=== PATIENT | female | born 1985 | race Caucasian/White ===

== ENCOUNTER → 2017-06-04 | Outpatient (CLI) | payer OTHER | LOC: RAD 10:46 | PROVIDERS: ATTEND Nurse Practitioner Family | DX: Z02.9 Encounter for administrative examinations, unspecified (principal) ==

== ENCOUNTER → 2017-07-22 | Outpatient (CLI) | payer OTHER ==
[~2017-07-22] MED LIST: Birth Control Pill PO; FENTANYL PF 250 MCG/5ML ONE; MEPERIDINE/PF 50 MG/ML ONE; MIDAZOLAM 1 MG/ML, 2ML ONE; ONDANSETRON 2MG/ML, 2ML ONE; VITA1TAB19 PO
== END | disposition home or self-care (01) ==
LOC: STAR 08:11
PROVIDERS: ATTEND Colon & Rectal Surgery
DX: Z02.9 Encounter for administrative examinations, unspecified (principal)

== ENCOUNTER 2017-07-29 07:49 | Day surgery (SDC) | payer OTHER ==
[~2017-07-29] VITALS: Ht 165.1 cm; Wt 69.8 kg
[~2017-07-29 07:49] MED LIST changes: -FENTANYL PF 250 MCG/5ML ONE; -MEPERIDINE/PF 50 MG/ML ONE; -MIDAZOLAM 1 MG/ML, 2ML ONE; -ONDANSETRON 2MG/ML, 2ML ONE
[2017-07-29 08:32] LABS: HCG UR SG 1.028 (1.003-1.030)
[2017-07-29 08:35] VITALS: BP 109/71
[2017-07-29] MEDS ORDERED: LACTATED RINGERS 1,000 ML IV SCH (09:00)
[2017-07-29] MEDS ORDERED: SCOPOLAMINE PATCH, 1.5MG PATCH.TD72 TD ONE (09:00)
[2017-07-29] MEDS ORDERED: ACETAMINOPHEN 500 MG TABLET PO ONE (09:00)
[2017-07-29] MEDS ORDERED: OxyconTIN ER 10 MG TAB.ER PO ONE (09:00)
[2017-07-29] MEDS ORDERED: GABAPENTIN 300 MG CAPSULE PO ONE (09:00)
[2017-07-29] MEDS ORDERED: BUPIVACAINE 0.25% ONE (09:25)
[2017-07-29] MEDS ORDERED: EPINEPHRINE 1 MG/ML, 1ML ONE (09:25)
[2017-07-29] MEDS ORDERED: ONDANSETRON 2MG/ML, 2ML ONE (10:00)
[2017-07-29] MEDS ORDERED: DEXAMETHASONE 4 MG/ML, 1ML ONE (10:00)
[2017-07-29] MEDS ORDERED: SUCCINYLCHOLINE 20 MG/ML, 10ML ONE (10:00)
[2017-07-29] MEDS ORDERED: GLYCOPYRROLATE 0.2MG/1ML, 5ML ONE (10:00)
[2017-07-29] MEDS ORDERED: NEOSTIGMINE 1 MG/ML, 10ML ONE (10:00)
[2017-07-29] MEDS ORDERED: PROPOFOL 10 MG/ML, 20ML ONE (10:00)
[2017-07-29] MEDS ORDERED: CEFOTETAN 1 GM ONE (10:00)
[2017-07-29] MEDS ORDERED: ROCURONIUM 10 MG/ML,10ML ONE (10:00)
[2017-07-29] MEDS ORDERED: BUPIVACAINE/PF-EPI 0.25% 1:200K IM ONE (10:25)
[2017-07-29] MEDS ORDERED: OXYcodone 5 MG/5 ML ORAL.SOL UDC PO PRN (11:00)
[2017-07-29] MEDS ORDERED: ALBUTEROL SULFATE 2.5 MG/3 ML NPPB PRN (11:00)
[2017-07-29] MEDS ORDERED: KETOROLAC 30 MG/1 ML IV PRN (11:00)
[2017-07-29] MEDS ORDERED: MEPERIDINE/PF 25MG/0.5ML IVPush PRN (11:00)
[2017-07-29] MEDS ORDERED: hydrALAzine 20 MG/ML, 1ML IV PRN (11:00)
[2017-07-29] MEDS ORDERED: ONDANSETRON 2MG/ML, 2ML IVPush PRN (11:00)
[2017-07-29] MEDS ORDERED: PLEASE ENTER ALLERGIES MC SCH (11:00)
[2017-07-29] MEDS ORDERED: METOCLOPRAMIDE 5 MG/ML, 2ML IV PRN (11:00)
[2017-07-29] MEDS ORDERED: PROMETHAZINE 25 MG/ML, 1ML IV PRN (11:00)
[2017-07-29] MEDS ORDERED: HYDROmorphone 2 MG/ML, 1ML IV PRN (11:00)
[2017-07-29] MEDS ORDERED: LABETALOL 5MG/ML, 20ML IV PRN (11:00)
[2017-07-29] MEDS ORDERED: OXYcodone 5 MG/5 ML ORAL.SOL UDC ONE (11:02)
[2017-07-29] MEDS ORDERED: FENTANYL PF 100 MCG/2ML ONE (11:02)
[2017-07-29] MEDS ORDERED: KETOROLAC 30 MG/1 ML ONE (11:02)
[2017-07-29] MEDS: FENTANYL PF 100 MCG/2ML IV PRN ×3 (11:10→11:29)
[2017-07-29] MEDS ORDERED: morphine SULFATE 10 MG/ML, 1ML ONE (12:41)
== END 2017-07-29 13:35 | disposition home or self-care (01) ==
LOC: OUT 07:49
PROVIDERS: ATTEND Colon & Rectal Surgery
DX: K80.10 Calculus of gallbladder with chronic cholecystitis without obstruction (principal); K80.20 Calculus of gallbladder without cholecystitis without obstruction; Z72.89 Other problems related to lifestyle
CPT/HCPCS: 47562; 81025; 88304; J0171; J0330; J1100; J1885; J2175; J2250; J2405; J2704; J2710; J3010; J3490; J7120; S0074